=== PATIENT | male | born 1970 | race Caucasian/White ===

== ENCOUNTER 2018-07-30 07:19 | Outpatient (CLI) | payer OTHER ==
[~2018-07-30] VITALS: Ht 177.8 cm; Wt 95.3 kg
[2018-07-30] VITALS (12 sets, daily range): BP systolic 103–147; BP diastolic 61–79
[2018-07-30] MEDS ORDERED: [UNRECOGNIZED DRUG - CODE] BC (07:53)
[2018-07-30] MEDS ORDERED: MULT1TAB52 PO (07:53)
[2018-07-30] MEDS ORDERED: LORA10TA68 PO (07:53)
[2018-07-30] MEDS ORDERED: OMEG1CAP6 PO (07:53)
[2018-07-30 08:21] LABS: BASO % 1 % (0-3); EOS # 0.1 x10^3/uL (0.0-0.7); EOS % 3 % (0-3); HEMATOCRIT 49.5 % (39.0-53.0); LYMPH # 1.2 x10^3/uL (1.0-4.8); LYMPH % 23 % (24-48); MEAN CORPUSCULAR HEMOGLOBIN 32 pg (25-35); MEAN CORPUSCULAR HGB CONC 34 g/dL (31-37); MEAN CORPUSCULAR VOLUME 94 fL (79-100); MONO # 0.7 x10^3/uL (0.0-1.1); MONO % 13 % (0-9); NEUT % 60 % (31-73); PLATELET COUNT 152 x10^3/uL (140-400); RED BLOOD COUNT 5.26 x10^6/uL (4.30-5.70); RED CELL DISTRIBUTION WIDTH 12.9 % (11.5-14.5); WHITE BLOOD COUNT 5.1 x10^3/uL (4.0-11.0)
[2018-07-30 08:31] LABS: PROTHROMBIN TIME PATIENT 12.5 SEC (11.7-14.0)
[2018-07-30] MEDS ORDERED: LIDOCAINE WITH 8.4% SOD BICARB 3 ML DISP.SYRIN. ONE (08:49)
[2018-07-30] MEDS ORDERED: fentaNYL PF VIAL 100 MCG/2 ML VIAL ONE (09:12)
[2018-07-30] MEDS ORDERED: MIDAZOLAM HCL/PF 2 MG/2 ML VIAL. ONE (09:12)
[2018-07-30] MEDS ORDERED: fentaNYL PF VIAL 100 MCG/2 ML VIAL IV ONE (09:30)
[2018-07-30] MEDS ORDERED: LIDOCAINE WITH 8.4% SOD BICARB 3 ML DISP.SYRIN. IJ ONE (09:30)
[2018-07-30] MEDS ORDERED: MIDAZOLAM HCL/PF 2 MG/2 ML VIAL. IV ONE (09:30)
--- NOTE | 2018-07-30 11:05 | NUR ---
Discharge Note: RAYO THAO Discharge instructions and discharge home medications reviewed with Patient and a copy given. All questions have been answered and understanding verbalized. The following instructions and handouts were given: moderate sedation and post biopsy care Discontinued lines and drains: Peripheral IV intact. Patient discharged to Home or Self Care withParentvia Ambulated
--- NOTE | 2018-07-30 15:30 | RAD ---
CT-guided retroperitoneal mass biopsy. 07/30/2018 3:24 PM Indication: Retroperitoneal Mass. No known malignancy. Discussion: The risks and benefits of the procedure, including but not limited to, bleeding and infection were discussed patient. Informed consent was obtained. The patient was brought to the CT scanner and placed in the prone position. A timeout procedure was performed. CT imaging redemonstrates a retroperitoneal mass, unchanged from recent comparison study. The left posterior abdomen was prepped and draped using sterile barrier technique. 1% lidocaine without epinephrine was administered for local anesthesia. Under intermittent CT guidance, a 17-gauge guiding needle was advanced into the retroperitoneal mass. Multiple core biopsies were obtained.. Divided amongst formalin and RPMI fluid. The needle was removed and manual pressure held to achieve hemostasis. No immediate complications were identified. Repeat imaging demonstrates no significant hemorrhage or other immediate complication. The procedure was performed under conscious sedation including continuous cardiopulmonary monitoring via dedicated sedation nurse. [id number] conscious sedation time: 25 minutes Impression: CT-guided biopsy, intraperitoneal mass PQRS Compliance Statement: One or more of the following individualized dose reduction techniques were utilized for this examination: 1. Automated exposure control 2. Adjustment of the mA and/or kV according to patient size 3. Use of iterative reconstruction technique
--- NOTE | 2018-08-06 14:06 | PATHOLOGY ---
[facility] Accession Number: [id number] . 01 Material submitted: . peritoneum - RETROPERITONEAL MASS . 01 Clinical history: . Retroperitoneal mass . 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 SEE COMMENT. (JPM:bri; 08/06/2018) QMS/08/06/2018 . 02 Comment: Sections of the retroperitoneal mass image guided needle biopsy reveal a malignant neoplasm. The malignant cells are present in loose clusters within a desmoplastic and focally chronically inflamed stroma. The malignant cells are relatively large and have a high N/C ratio. The malignant cells possess rounded to ovoid nuclei containing one or more prominent nucleoli. Mitotic figures are present. The malignant cells show no evidence of glandular differentiation. . A portion of the specimen is submitted for flow cytometric analysis. There is no flow immunophenotypic evidence of a lymphoproliferative disorder based on limited antibody panel (see flow cytometry report). . To confirm flow cytometric findings and characterize the target cells in a tissue architectural context, a panel of immunohistochemical stains is performed on block A1 and reveals the following results: . CAM5.2: Few tumor cells positive CD45: Tumor cells negative; lymphocytes positive CD20: Tumor cells negative; small population of lymphocytes positive CD3: Tumor cells negative; majority of lymphocytes positive Synaptophysin: Tumor cells negative Chromogranin: Tumor cells negative CK SHAY: Few tumor cells positive AE1/AE3: Few tumor cells positive S100: Tumor cells negative CD56: Tumor cells negative TTF-1: Tumor cells negative Placental alkaline phosphatase: Tumor cells positive CD30: Tumor cells negative CD117: Tumor cells positive Glypican 3: Tumor cells appear negative . 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 Placental alkaline phosphatase and CD117 positivity may be seen with seminoma. Since there is a very limited amount of tumor tissue, we cannot be more specific in classifying the germ cell neoplasm. Also, the biopsy represents a small sampling of a much larger tumor such that we cannot exclude other nonseminomatous germ cell components. Would recommend testicular examination and serum levels of LDH, HCG, and alpha fetoprotein. The results are discussed with Dr. Gary on 08/05/2018. The case is also examined by Dr. Nascimento, who concurs with the diagnosis. (JPM:bri; 08/06/2018) . . Special stains performed: Immunoperoxidase stains all on A1; CAM5.2, CD45, CD20, CD3, synaptophysin, chromagin, CKOSCAR, AE1/AE3, S100, CD56, TTF-1, PLAP, CD30, glypican 3, and CD117. . 02 Electronically signed: . Chetan Hanna MD, Pathologist NPI- [id number] . 01 Gross description: . The specimen is received in formalin, labeled "Ross, Angel, retroperitoneal mass" and consists of a few needle cores of pink-julian tissue measuring 0.6 x 0.6 x 0.1 cm in aggregate which are entirely submitted in A1. (SDY; 07/30/2018) SYU/SYU . 02 Pathologist provided ICD-10: C48.0 . 02 CPT . 110887, C08390, [id number] Specimen Comment: A courtesy copy of this report has been sent to Specimen Comment: [phone], . Specimen Comment: Report sent to and Performed at: 01 [facility] [address] [place] [address], [place] [id number] MD Jose Pratt MD Phone: [phone] Performed at: 02 [facility] [address] [place], [place] [id number] MD Chetan Hanna MD Phone: [phone]
== END 2018-07-30 11:08 | disposition home or self-care (01) ==
LOC: INTRAD 07:19
PROVIDERS: ATTEND Internal Medicine Gastroenterology
DX: K68.9 Other disorders of retroperitoneum (principal); R19.09 Other intra-abdominal and pelvic swelling, mass and lump
CPT/HCPCS: 36415; 49180; 76937; 77001; 85025; 85610; 85730; 88184; 88185; 88305; 88341; 88342; 99152; 99153; J2250; J3010